=== PATIENT | male | born 1990 | race African-American/Black ===

== ENCOUNTER 2022-10-22 16:14 | Emergency (ER) | payer OTHER ==
[~2022-10-22] VITALS: Ht 195.6 cm; Wt 90.0 kg
[2022-10-22 16:23] VITALS: BP 109/72
[2022-10-22] MEDS ORDERED: IBUPROFEN 600MG TABLET PO ONE (19:45)
[2022-10-22] MEDS ORDERED: NAPR500T7 MT (20:18)
== END 2022-10-22 20:31 | disposition home or self-care (01) ==
LOC: ER 16:14
DX: S20.212A Contusion of left front wall of thorax, initial encounter (principal); G89.11 Acute pain due to trauma; M25.512 Pain in left shoulder; V49.9XXA Car occupant (driver) (passenger) injured in unspecified traffic accident, initial encounter; Y93.89 Activity, other specified; Y92.89 Other specified places as the place of occurrence of the external cause; Y99.8 Other external cause status
CPT/HCPCS: 71045; 99283